=== PATIENT | female | born 1945 | race Caucasian/White ===

== ENCOUNTER 2024-03-21 06:00 | Day surgery (SDC) | payer OTHER ==
[2024-03-18 15:46] VITALS: BP 122/81
[~2024-03-21] VITALS: Ht 160 cm; Wt 80.7 kg
[~2024-03-21 06:00] MED LIST: ATORVASTATIN CA10 MG PO; IRBESARTAN-HCT1 EACH PO; METFORMIN HCL500 M3 PO; NORVASC2.5 M1 PO; SYNTHROID88 MCG PO
[2024-03-21] MEDS ORDERED: CEFAZOLIN SODIUM 1,000 MG VIAL IV ONE ×2 (13:00→14:00)
[2024-03-21] MEDS ORDERED: EPINEphrine 10 ML DISP.SYRIN IJ ONE (13:15)
[2024-03-21] MEDS ORDERED: KETOROLAC TROMETHAMINE 60 MG VIAL IM ONE (13:15)
[2024-03-21] MEDS ORDERED: LIDOCAINE HCL 1%/EPINEPHRINE 20ML VIAL IJ ONE (13:15)
[2024-03-21] MEDS ORDERED: MORPHINE SULFATE 4 MG/ML VIAL IV ONE ×2 (13:15→15:55)
[2024-03-21] MEDS ORDERED: OxyCODONE HCL/APAP UD (PERCOCET) PO PRN (14:00)
[2024-03-21] MEDS ORDERED: PROMETHAZINE HCL 25 MG/ML AMPUL IM PRN (14:00)
[2024-03-21] MEDS ORDERED: MEPERIDINE HCL/PF 25 MG/ML VIAL IM PRN (14:00)
[2024-03-21] MEDS ORDERED: OXYC1TAB9 PO (14:04)
[2024-03-21] MEDS ORDERED: DUI500 PO (14:04)
[2024-03-21] MEDS ORDERED: CEFADROXIL 500 MG CAPSULE PO SCH (21:00)
== END 2024-03-21 17:25 | disposition home or self-care (01) ==
LOC: CIR.AMB 06:00
PROVIDERS: ATTEND Orthopaedic Surgery Sports Medicine
DX: M75.121 Complete rotator cuff tear or rupture of right shoulder, not specified as traumatic (principal); M65.811 Other synovitis and tenosynovitis, right shoulder; M25.811 Other specified joint disorders, right shoulder